=== PATIENT | male | born 2000 | race Two or more races ===

== ENCOUNTER 2022-02-02 21:25 | Emergency (ER) | payer OTHER, BC ==
[2022-02-02 21:32] VITALS: BP 143/82; PULSE 85; RESP 16; TEMP 98.2
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
[2022-02-03] MEDS ORDERED: IBUPROFEN 600 MG TAB PO STA (00:34)
[2022-02-03] MEDS ORDERED: ORPHENADRINE 30 MG/ML 2 ML VIAL IM STA (00:34)
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
== END 2022-02-03 01:03 | disposition home or self-care (01) ==
LOC: EC 21:25
DX: M54.2 Cervicalgia (principal); F17.209 Nicotine dependence, unspecified, with unspecified nicotine-induced disorders; V49.9XXA Car occupant (driver) (passenger) injured in unspecified traffic accident, initial encounter; Y92.410 Unspecified street and highway as the place of occurrence of the external cause
CPT/HCPCS: 70450; 72125; 96372; 96374; 99284; 99285